=== PATIENT | female | born 1945 | race Caucasian/White ===

== ENCOUNTER 2020-07-26 08:59 | Outpatient (CLI) | payer MEDICARE, SELFPAY | END 2020-07-26 09:00 | disposition home or self-care (01) | LOC: ANHCOVIDVC 08:59 | PROVIDERS: PCP Family Medicine | DX: Z23 Encounter for immunization (principal) | CPT/HCPCS: 0001A; 91300 ==

== ENCOUNTER 2020-08-16 09:06 | Outpatient (CLI) | payer MEDICARE, SELFPAY | END 2020-08-16 09:07 | disposition home or self-care (01) | LOC: ANHCOVIDVC 09:07 | PROVIDERS: PCP Family Medicine | DX: Z23 Encounter for immunization (principal) | CPT/HCPCS: 0002A; 91300 ==